=== PATIENT | female | born 1995 | race Caucasian/White ===

== ENCOUNTER 2025-06-27 23:42 | Emergency (ER) | payer MEDICAID ==
[~2025-06-27] VITALS: Ht 167.6 cm; Wt 59.3 kg
[2025-06-27 23:54] VITALS: O2SAT 98
[2025-06-28 00:38] LABS: BASOPHILS % 1.1 % (0.0-2.0); EOSINOPHILS % 1.1 % (0.0-5.0); HEMATOCRIT. 44.5 % (36.0-48.0); HEMOGLOBIN. 14.7 g/dL (12.0-16.0); LYMPHOCYTES % 26.9 % (20.0-50.0); MEAN PLATELET VOLUME 9.7 fl (7.4-10.4); MONOCYTES % 9.3 % (2.0-8.0); NEUTROPHILS % 61.6 % (40.0-76.0); PLATELET 236 x1000/uL (130-400); RED BLOOD CELL COUNT 5.12 mill/uL (4.2-5.4); RED CELL DISTRIBUTION WIDTH 13.0 % (11.6-14.6)
[2025-06-28 00:50] LABS: CREATININE 0.9 mg/dL (0.6-1.0); UREA NITROGEN BLOOD 5 mg/dL (9-23)
[2025-06-28 00:51] LABS: ETHANOL BLOOD < 10 mg/dL (<10)
[2025-06-28 00:52] LABS: ASPARTATE AMINOTRANSFERASE 13 IU/L (<34); BILIRUBIN DIRECT 0.2 mg/dL (<=3.0)
[2025-06-28 00:53] LABS: BILIRUBIN TOTAL 0.7 mg/dL (0.1-1.0); PROTEIN TOTAL 7.3 g/dL (6.0-8.3)
[2025-06-28 01:00] LABS: HCG SCREEN NEGATIVE
[2025-06-28 01:10] VITALS: BP 107/65; PULSE 70; RESP 18; TEMP 36.7; O2SAT 100
[2025-06-28] MEDS: ONDANSETRON 4MG ODT PO ONE (01:45)
[2025-06-28] MEDS ORDERED: ONDA-239 PO (01:49)
== END 2025-06-28 03:12 | disposition home or self-care (01) ==
LOC: ER 23:42
DX: R11.2 Nausea with vomiting, unspecified (principal); A08.4 Viral intestinal infection, unspecified
CPT/HCPCS: 99283; 80076; 80048; 80320; 84703; 83690; 85025; 36415; Q0162; G0480

== ENCOUNTER 2025-07-29 19:05 | Emergency (ER) | payer MEDICAID ==
[~2025-07-29] VITALS: Ht 165.1 cm; Wt 59.0 kg
[~2025-07-29 19:05] MED LIST: ONDA-239 PO
[2025-07-29 19:16] VITALS: O2SAT 100
[2025-07-29 22:21] LABS: INFLUENZA TYPE A Presumptive Negative (Pres. Neg.)
[2025-07-29 22:22] LABS: INFLUENZA TYPE B Presumptive Negative (Pres. Neg.)
[2025-07-29] MEDS ORDERED: ACET-2708 MT (22:38)
[2025-07-29] MEDS ORDERED: DEXT15LI31 MT (22:41)
[2025-07-29 23:17] VITALS: BP 101/62; PULSE 76; RESP 16; TEMP 37; O2SAT 100
== END 2025-07-29 23:18 | disposition home or self-care (01) ==
LOC: ER 19:05
DX: J06.9 Acute upper respiratory infection, unspecified (principal)
CPT/HCPCS: 81025; 87070; 87430; 87804; 99283